=== PATIENT | male | born 1995 | race Caucasian/White ===

== ENCOUNTER 2021-08-02 15:10 | Inpatient (IN) | payer MEDICAID ==
[~2021-08-02] VITALS: Ht 172.7 cm; Wt 103.9 kg
[2021-08-02] MEDS ORDERED: risperdal PO (16:18)
[2021-08-02] MEDS ORDERED: INFLUENZA VIRUS VACCINE QVS 2021-22 (6MO+)/PF 60 MCG/0.5 ML SYRINGE IM. ONE (16:30)
[2021-08-02 16:31] LABS: GLUCOMETER DEV NAME(LOC) POC.BV
[2021-08-02] MEDS ORDERED: LOPERAMIDE HCL 2 MG CAPSULE PO PRN (16:45)
[2021-08-02] MEDS ORDERED: HALOPERIDOL 5 MG TABLET PO PRN (16:45)
[2021-08-02] MEDS ORDERED: HydrOXYzine PAMOATE 50 MG CAPSULE PO PRN (16:45)
[2021-08-02] MEDS ORDERED: GuaiFENesin/D-METHORPHAN [SUGAR-FREE] 200-20MG/10 ML SYRUP UDCUP PO PRN (16:45)
[2021-08-02] MEDS ORDERED: CYANOCOBALAMIN 1,000 MCG/ML VIAL IM ONE (16:45)
[2021-08-02] MEDS ORDERED: LORazepam 2 MG TABLET PO PRN (16:45)
[2021-08-02 17:20] VITALS: BP 139/84
[2021-08-02] MEDS: FOLIC ACID 1 MG TABLET PO SCH (19:27)
[2021-08-02] MEDS: MULTIVITAMINS WITH MINERALS, THERAPEUTIC TABLET PO SCH (19:27)
[2021-08-02] MEDS: THIAMINE 100 MG TABLET PO SCH (19:27)
[2021-08-02 19:52] VITALS: BP 113/63
[2021-08-02 22:07] VITALS: BP 103/62
[2021-08-03] VITALS (9 sets, daily range): BP systolic 115–134; BP diastolic 65–87
[2021-08-03] MEDS ORDERED: LORazepam 2 MG TABLET PO PRN (07:00)
[2021-08-03 07:50] LABS: BASOPHILS % (AUTO) 0.3 % (0.0-2.0); EOSINOPHILS % (AUTO) 1.6 % (1.0-6.0); HEMATOCRIT 43.6 % (41-53); HEMOGLOBIN 15.3 g/dL (13.5-17.5); LYMPHOCYTES # (AUTO) 1.5 K/uL (1.0-4.8); LYMPHOCYTES % (AUTO) 24.9 % (22.0-44.0); MEAN CORPUSCULAR HEMOGLOBIN 30.7 pg (26.0-34.0); MEAN CORPUSCULAR VOLUME 88 fL (80-100); MONOCYTES # (AUTO) 0.6 K/uL (0.1-1.0); MONOCYTES % (AUTO) 9.6 % (2.0-9.0); NEUTROPHILS # (AUTO) 3.7 K/uL (1.8-7.7); NEUTROPHILS % (AUTO) 63.6 % (40.0-70.0); PLATELET COUNT (AUTO) 226 K/uL (150-450); RED BLOOD CELL COUNT(AUTO) 4.98 MIL/uL (4.50-5.90); RED CELL DISTRIBUTION WIDTH 12.8 % (11.5-14.5)
[2021-08-03 07:55] LABS: HEMOGLOBIN A1C 5.5 % (3.8-5.6)
[2021-08-03 07:57] LABS: APPEARANCE,URINE CLEAR (CLEAR); BILIRUBIN,URINE NEGATIVE (NEGATIVE); GLUCOSE, URINE (UA) NEGATIVE (NEGATIVE); KETONES,URINE NEGATIVE (NEGATIVE); LEUKOCYTE ESTERASE ,URINE NEGATIVE (NEGATIVE); NITRATE,URINE NEGATIVE (NEGATIVE); OCCULT BLOOD,URINE NEGATIVE (NEGATIVE); PROTEIN,URINE NEGATIVE (NEGATIVE); UROBILINOGEN,URINE 0.2 mg/dL (<=1.0)
[2021-08-03] MEDS ORDERED: ONDANSETRON HCL 4 MG TABLET PO PRN (08:00)
[2021-08-03] MEDS ORDERED: ACETAMINOPHEN 325 MG TABLET PO PRN (08:00)
[2021-08-03] MEDS ORDERED: PETROLATUM,WHITE 28 GM JELLY TP PRN (08:00)
[2021-08-03] MEDS ORDERED: DOCUSATE SODIUM 100 MG CAPSULE PO PRN (08:00)
[2021-08-03] MEDS ORDERED: CloNIDine HCL 0.1 MG TABLET PO PRN (08:00)
[2021-08-03] MEDS ORDERED: LOPERAMIDE HCL 2 MG CAPSULE PO PRN (08:00)
[2021-08-03] MEDS ORDERED: MAGNESIUM HYDROXIDE SUSPENSION 30 ML UDCUP PO PRN (08:00)
[2021-08-03] MEDS ORDERED: ALBUTEROL SULFATE HFA 90 MCG/PUFF 8 GM INHALER IH PRN (08:00)
[2021-08-03] MEDS ORDERED: MAG HYDROX/AL HYDROX/SIMETH ES 30 ML SUSPENSION UDCUP PO PRN (08:00)
[2021-08-03] MEDS ORDERED: GuaiFENesin/D-METHORPHAN [SUGAR-FREE] 200-20MG/10 ML SYRUP UDCUP PO PRN (08:00)
[2021-08-03] MEDS ORDERED: NICOTINE 14 MG/24 HOUR PATCH TD PRN (08:00)
[2021-08-03 08:01] LABS: AMPHET/METH SCREEN,URINE NEGATIVE (NEGATIVE); BARBITURATE SCREEN, URINE NEGATIVE (NEGATIVE); BENZODIAZEPINES SCREEN,URINE NEGATIVE (NEGATIVE); CANNABINOID SCREEN,URINE NEGATIVE (NEGATIVE); COCAINE SCREEN,URINE NEGATIVE (NEGATIVE); METHADONE SCREEN, URINE NEGATIVE (NEGATIVE); OPIATE SCREEN,URINE NEGATIVE (NEGATIVE); PHENCYCLIDINE SCREEN,URINE NEGATIVE (NEGATIVE)
[2021-08-03 08:04] LABS: ALANINE AMINOTRANSFERASE 51 U/L (12-78); ALBUMIN 3.5 g/dL (3.4-5.0); ALKALINE PHOSPHATASE 65 U/L (46-116); ANION GAP 9 mmol/L (8-16); ASPARTATE AMINOTRANSFERASE 36 U/L (15-37); BILIRUBIN,TOTAL 0.8 mg/dL (0.1-1.0); CALCIUM, TOTAL 8.6 mg/dL (8.8-10.5); CARBON DIOXIDE 29 mmol/L (22-29); CHLORIDE 103 mmol/L (98-107); CHOL/HDL RATIO 2.7 (4.2-7.3); CHOLESTEROL 185 mg/dL (131-200); CREATININE 1.01 mg/dL (0.60-1.30); FREE T4 (FREE THYROXINE) 0.71 ng/dL (0.76-1.46); GLOMERULAR FILTR. RATE CALC > 60 mL/min (>60); GLUCOSE,RANDOM 89 mg/dL (70-110); HDL CHOLESTEROL 68 mg/dL (40-60); LDL CHOL (CALC.) 72 mg/dL (0-130); POTASSIUM 4.2 mmol/L (3.5-5.1); SODIUM SERUM 141 mmol/L (136-145); THYROID STIMULATING HORMONE 0.66 uIU/mL (0.36-3.74); TOTAL PROTEIN, SERUM 7.2 g/dL (6.4-8.2); TRIGLYCERIDES 223 mg/dL (15-150); UREA NITROGEN, BLOOD 14 mg/dL (7-18)
[2021-08-03] MEDS: LORazepam 2 MG TABLET PO SCH ×4 (08:33→20:43)
[2021-08-03] MEDS: THIAMINE 100 MG TABLET PO SCH ×2 (08:33→16:58)
[2021-08-03] MEDS: MULTIVITAMINS WITH MINERALS, THERAPEUTIC TABLET PO SCH (08:33)
[2021-08-03] MEDS: FOLIC ACID 1 MG TABLET PO SCH (08:33)
[2021-08-03] MEDS ORDERED: QUEtiapine FUMARATE 100 MG TABLET PO PRN (09:45)
[2021-08-03] MEDS: HALOPERIDOL 5 MG TABLET PO SCH ×2 (09:54→20:43)
[2021-08-03] MEDS: SERTRALINE HCL 50 MG TABLET PO SCH (09:54)
[2021-08-04 06:24] VITALS: BP 122/73
[2021-08-04 08:22] VITALS: BP 123/65
[2021-08-04] MEDS: SERTRALINE HCL 50 MG TABLET PO SCH (08:43)
[2021-08-04] MEDS: THIAMINE 100 MG TABLET PO SCH ×2 (08:43→16:26)
[2021-08-04] MEDS: HALOPERIDOL 5 MG TABLET PO SCH ×2 (08:44→20:06)
[2021-08-04] MEDS: LORazepam 2 MG TABLET PO SCH ×4 (08:44→20:06)
[2021-08-04] MEDS: MULTIVITAMINS WITH MINERALS, THERAPEUTIC TABLET PO SCH (08:44)
[2021-08-04] MEDS: FOLIC ACID 1 MG TABLET PO SCH (08:44)
[2021-08-04 09:47] VITALS: BP 123/65
[2021-08-04 16:28] VITALS: BP 116/66
[2021-08-04 16:42] VITALS: BP 116/66
[2021-08-04] MEDS: ZOLPIDEM TARTRATE 10 MG TABLET PO PRN (20:57)
[2021-08-05 00:16] VITALS: BP 140/83
[2021-08-05 02:07] VITALS: BP 140/83
[2021-08-05] MEDS ORDERED: LORazepam 1 MG TABLET PO PRN (07:00)
[2021-08-05 08:13] VITALS: BP 121/66
[2021-08-05] MEDS: HALOPERIDOL 5 MG TABLET PO SCH ×2 (08:54→20:24)
[2021-08-05] MEDS: MULTIVITAMINS WITH MINERALS, THERAPEUTIC TABLET PO SCH (08:54)
[2021-08-05] MEDS: LORazepam 1 MG TABLET PO SCH ×4 (08:54→20:24)
[2021-08-05] MEDS: FOLIC ACID 1 MG TABLET PO SCH (08:54)
[2021-08-05] MEDS: THIAMINE 100 MG TABLET PO SCH ×2 (08:55→16:59)
[2021-08-05] MEDS: SERTRALINE HCL 50 MG TABLET PO SCH (08:55)
[2021-08-05 09:52] VITALS: BP 121/66
[2021-08-05 16:30] VITALS: BP_SYST 104; BP_DIAS 60; BP_DIAS 65
[2021-08-05] MEDS: ZOLPIDEM TARTRATE 10 MG TABLET PO PRN (20:24)
[2021-08-06 04:00] VITALS: BP 117/78
[2021-08-06 08:14] VITALS: BP 115/64
[2021-08-06] MEDS: HALOPERIDOL 5 MG TABLET PO SCH ×2 (08:50→20:51)
[2021-08-06] MEDS: SERTRALINE HCL 50 MG TABLET PO SCH (08:50)
[2021-08-06] MEDS: MULTIVITAMINS WITH MINERALS, THERAPEUTIC TABLET PO SCH (08:51)
[2021-08-06] MEDS: FOLIC ACID 1 MG TABLET PO SCH (08:51)
[2021-08-06] MEDS: THIAMINE 100 MG TABLET PO SCH ×2 (08:51→16:57)
[2021-08-06] MEDS: LORazepam 1 MG TABLET PO PRN ×3 (08:51→20:58)
[2021-08-06 10:33] VITALS: BP 115/74
[2021-08-06] MEDS ORDERED: NALTREXONE HCL 50 MG TABLET PO SCH (11:15)
[2021-08-06] MEDS: NALTREXONE HCL 50 MG TABLET PO SCH (12:23)
[2021-08-06 16:15] VITALS: BP 116/81
[2021-08-06 16:24] VITALS: BP 116/81
[2021-08-06] MEDS: ZOLPIDEM TARTRATE 10 MG TABLET PO PRN (20:51)
[2021-08-07 05:15] VITALS: BP 124/82
[2021-08-07 06:00] VITALS: BP 124/82
[2021-08-07 08:23] VITALS: BP 109/70
[2021-08-07] MEDS: MULTIVITAMINS WITH MINERALS, THERAPEUTIC TABLET PO SCH (08:44)
[2021-08-07] MEDS: HALOPERIDOL 5 MG TABLET PO SCH (08:44)
[2021-08-07] MEDS: SERTRALINE HCL 50 MG TABLET PO SCH (08:44)
[2021-08-07] MEDS: THIAMINE 100 MG TABLET PO SCH (08:44)
[2021-08-07] MEDS: NALTREXONE HCL 50 MG TABLET PO SCH (08:44)
[2021-08-07] MEDS: FOLIC ACID 1 MG TABLET PO SCH (08:44)
[2021-08-07 09:21] VITALS: BP 122/70
[2021-08-07] MEDS ORDERED: SERT-158 PO ×2 (09:50→10:21)
[2021-08-07] MEDS ORDERED: NALT50TA6 PO ×2 (09:50→10:21)
[2021-08-07] MEDS ORDERED: HALO5TAB2 PO ×2 (09:50→10:21)
== END 2021-08-07 14:09 | disposition home or self-care (01) | DRG 750 ==
LOC: B3A 17:14
PROVIDERS: ADMIT Psychiatry & Neurology Psychiatry; ATTEND Psychiatry & Neurology Psychiatry
DX: F25.1 Schizoaffective disorder, depressive type (principal); R45.851 Suicidal ideations; E66.01 Morbid (severe) obesity due to excess calories; F10.20 Alcohol dependence, uncomplicated; Z20.822 Contact with and (suspected) exposure to COVID-19; K21.9 Gastro-esophageal reflux disease without esophagitis; Z79.899 Other long term (current) drug therapy; Z91.51 Personal history of suicidal behavior; Z88.8 Allergy status to other drugs, medicaments and biological substances
CPT/HCPCS: 80053; 80061; 81003; 83036; 84439; 84443; 85025; 86592; 90686; J3420